=== PATIENT | male | born 1945 | race Caucasian/White ===

== ENCOUNTER 2019-09-26 22:47 | Inpatient (IN) | payer MEDICARE ==
[~2019-09-26] VITALS: Ht 167.6 cm; Wt 63.9 kg
[2019-09-26 23:38] LABS: BASO # 0.1 (0.0-0.2); BASO % 0.8 % (0.0-2.0); EOS # 0.4 (0.0-0.7); EOS % 4.9 % (0-4.0); GRAN # 4.4 (1.4-6.5); GRAN % 50.8 % (42.2-75.2); HEMATOCRIT 37.9 % (42.0-52.0); HEMOGLOBIN 11.5 g/dl (13.5-18.0); LYMPH # 2.8 (1.2-3.4); LYMPH % 31.9 % (20.0-51.0); MEAN CELL VOLUME 86 fl (80.0-100.0); MEAN CORPUSCULAR HEMOGLOBIN 26 pg (27.0-31.0); MEAN CORPUSCULAR HGB CONC 30 g/dl (33.0-37.0); MEAN PLATELET VOLUME 8.8 fl (7.4-10.4); MONO % 11.1 % (1.7-9.3); PLATELET COUNT 271 K/mm3 (130-400); RED BLOOD COUNT 4.39 M/mm3 (4.20-5.60); REDCELL DISTRIBUTION WIDTH-CV 14.8 % (11.5-14.5)
[2019-09-26 23:55] LABS: PROTHROMBIN TIME 11.2 SECONDS (9.7-12.8)
[2019-09-26 23:56] LABS: ALBUMIN 3.5 gm/dL (3.5-5.0); BILIRUBIN,TOTAL 0.2 mg/dL (0.0-1.0); C-REACTIVE PROTEIN 0.8 mg/dL (0.0-0.9); CREATININE, serum 2.05 (0.66-1.25); POTASSIUM 4.9 mmol/L (3.4-5.0); TOTAL PROTEIN 6.6 gm/dL (6.4-8.2)
[2019-09-26 23:58] LABS: PARTIAL THROMBOPLASTIN TIME 32.8 SECONDS (26.0-37.0)
[2019-09-27 01:47] LABS: COLLECTION METHOD CLEAN CATCH
[2019-09-27 02:09] LABS: PH 5 (5-8); SQUAMOUS EPITHELIAL None Seen /hpf; URINE APPEARANCE Turbid; URINE BACTERIA Rare /hpf; URINE BILIRUBIN Negative (NEGATIVE); URINE BLOOD 1+ (NEGATIVE); URINE COLOR Yellow; URINE GLUCOSE Negative (NEGATIVE); URINE KETONE Negative (NEGATIVE); URINE LEUKOCYTE ESTERASE 3+ (NEGATIVE); URINE NITRATE Negative (NEGATIVE); URINE PROTEIN(semi-quant) 2+ (NEGATIVE); URINE RBC 20-50 /hpf; URINE UROBILINOGEN Negative (NEGATIVE)
[2019-09-27] MEDS ORDERED: ASPIRIN 81M81 MG/TA2 PO (03:15)
[2019-09-27] MEDS ORDERED: ZYRTEC 10MG10 MG PO (03:16)
[2019-09-27] MEDS ORDERED: LOPRESSOR 225 MG/TAB PO (03:17)
[2019-09-27] MEDS ORDERED: FLOMAX 0.40.4 MG/CAP PO (03:17)
[2019-09-27 05:10] VITALS: BP 144/81; PULSE 80; TEMP 97.6
--- NOTE | 2019-09-27 05:26 | NUR ---
Pt arrived to unit from ED with dx of GI bleed an UTI. Pt is alert and oriented with vss. Pt heart and lung sounds normal. Bowel sounds aud all quad. Voiding independently. Pedal pulses pressent. IV to L AC, fluids running. Pt states he has been having bright red blood in stools but flushed so nurse did not see. instructed to save stool. pt denies pain or needs. call light within reach, will continue to monitor
[2019-09-27 07:06] LABS: BASO % 0.4 % (0.0-2.0); EOS # 0.4 (0.0-0.7); EOS % 4.5 % (0-4.0); GRAN # 5.1 (1.4-6.5); GRAN % 55.9 % (42.2-75.2); HEMOGLOBIN 10.5 g/dl (13.5-18.0); LYMPH # 2.6 (1.2-3.4); LYMPH % 28.5 % (20.0-51.0); MEAN CELL VOLUME 87 fl (80.0-100.0); MEAN CORPUSCULAR HEMOGLOBIN 26 pg (27.0-31.0); MEAN CORPUSCULAR HGB CONC 30 g/dl (33.0-37.0); MONO # 0.9 (0.1-0.6); PLATELET COUNT 268 K/mm3 (130-400); RED BLOOD COUNT 4.04 M/mm3 (4.20-5.60); REDCELL DISTRIBUTION WIDTH-CV 14.7 % (11.5-14.5)
[2019-09-27 07:10] LABS: HEMATOCRIT 35.1 % (42.0-52.0)
[2019-09-27 07:32] LABS: CALCIUM 8.7 mg/dL (8.4-10.2); CREATININE, serum 1.94 (0.66-1.25); MAGNESIUM 1.6 mg/dL (1.6-2.3); PHOSPHOROUS 3.9 mg/dL (2.5-4.5); POTASSIUM 4.7 mmol/L (3.4-5.0)
[2019-09-27 07:42] VITALS: BP 118/76; PULSE 85; TEMP 97.5
--- NOTE | 2019-09-27 08:00 | NUR ---
Patient is awake and alert in bed, diet has been changed to clear liquids. Was provivded with applejuice and sprite per his request. Denies pain. Call light and personal belongings are within reach.
--- NOTE | 2019-09-27 09:41 | NUR ---
First visit from the sorter laundry articles. No needs right now.
[2019-09-27 12:25] VITALS: BP 111/71; PULSE 80; TEMP 97.5
[2019-09-27 15:57] VITALS: BP 114/69; PULSE 81; TEMP 97.6
[2019-09-27 18:23] LABS: HEMATOCRIT 31.8 % (42.0-52.0); HEMOGLOBIN 9.7 g/dl (13.5-18.0)
--- NOTE | 2019-09-27 19:10 | NUR ---
Received reprot from Latanya. Seen patient awake, lying on bed. He just finished eating his dinner. Denies any pain. With In on left AC running NS at 75ml/hr. Patient is alert and oriented.
[2019-09-27 20:02] VITALS: BP 124/71; PULSE 82; TEMP 98.4
[2019-09-27 23:54] VITALS: BP 115/75; PULSE 73; TEMP 98
[2019-09-28 03:45] VITALS: BP 111/69; PULSE 76; TEMP 98.5
--- NOTE | 2019-09-28 05:45 | NUR ---
Patient had an uneventful night. Denies any pain. 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 Afebrile. Will endorse to day shift nurse.
[2019-09-28 07:09] LABS: BASO % 0.3 % (0.0-2.0); EOS # 0.4 (0.0-0.7); EOS % 4.7 % (0-4.0); GRAN % 55.4 % (42.2-75.2); LYMPH # 2.6 (1.2-3.4); LYMPH % 28.8 % (20.0-51.0); MEAN CELL VOLUME 87 fl (80.0-100.0); MEAN CORPUSCULAR HGB CONC 30 g/dl (33.0-37.0); MEAN PLATELET VOLUME 9.1 fl (7.4-10.4); MONO % 10.5 % (1.7-9.3); PLATELET COUNT 258 K/mm3 (130-400); RED BLOOD COUNT 3.55 M/mm3 (4.20-5.60); REDCELL DISTRIBUTION WIDTH-CV 14.6 % (11.5-14.5)
[2019-09-28 07:14] LABS: HEMOGLOBIN 9.4 g/dl (13.5-18.0); MEAN CORPUSCULAR HEMOGLOBIN 26 pg (27.0-31.0)
[2019-09-28 07:25] LABS: CALCIUM 8.3 mg/dL (8.4-10.2); CREATININE, serum 1.83 (0.66-1.25); POTASSIUM 4.8 mmol/L (3.4-5.0)
[2019-09-28 07:34] VITALS: BP 126/77; PULSE 75; TEMP 97.8
--- NOTE | 2019-09-28 08:45 | NUR ---
Patient is awake and alert in his room. Did disconnect from iv fluids so patient can shower. He is observed to have a steady gait. Denies having pain. Fresh water has been provided. Call light and personal items are within reach.
[2019-09-28 11:51] VITALS: BP 141/70; PULSE 69; TEMP 98.8
--- NOTE | 2019-09-28 14:43 | NUR ---
Textile Supervisor contacted patient to discuss discharge planning. Patient lives alone in [place]. Patient sees Dr. Francisco for primary care at [facility] in [place]. Patient obtains medications from [facility] with no difficulties. Patient does not use any DME and reports independence with ADLS. Patient does not have DPOA-HC but reports his daughter Vicky (ph#[phone]) is his next of kin. Patient plans to return home upon discharge. RUBEN spoke with RNLatanya who reports patient has been independent in his room. SW to continue to follow as needed.
[2019-09-28 16:28] VITALS: BP 115/64; PULSE 68; TEMP 98.6
--- NOTE | 2019-09-28 19:04 | NUR ---
Report given to oncoming shift. Is awake and alert, no needs are identified, call light and personal items are within reach.
[2019-09-28 19:49] VITALS: BP 118/60; PULSE 74; TEMP 98.4
--- NOTE | 2019-09-28 20:00 | NUR ---
At time of assessment, patient is awake in bed watching TV. Respirations are effortless, lung sounds are clear, heart sounds are normal and regular. He does not complain of any pain. He is alert and oriented and states he is looking forward to hopefully going home tomorrow. IV in L AC flushes well and dressing is CDI. No other concerns at this time.
[2019-09-29 00:54] VITALS: BP 115/68; PULSE 72; TEMP 98.2
[2019-09-29 04:58] VITALS: BP 134/76; PULSE 70; TEMP 97.9
--- NOTE | 2019-09-29 05:28 | NUR ---
Patient has had an uneventful night. He has slept throughout the night and has not complained of any pain or other concerns. Will continue to monitor.
[2019-09-29 06:28] LABS: BASO % 0.5 % (0.0-2.0); EOS # 0.4 (0.0-0.7); EOS % 4.2 % (0-4.0); GRAN # 4.4 (1.4-6.5); GRAN % 51.8 % (42.2-75.2); LYMPH # 2.7 (1.2-3.4); LYMPH % 31.5 % (20.0-51.0); MEAN CELL VOLUME 86 fl (80.0-100.0); MEAN CORPUSCULAR HGB CONC 31 g/dl (33.0-37.0); MEAN PLATELET VOLUME 9.3 fl (7.4-10.4); MONO % 11.8 % (1.7-9.3); PLATELET COUNT 254 K/mm3 (130-400); RED BLOOD COUNT 3.56 M/mm3 (4.20-5.60); REDCELL DISTRIBUTION WIDTH-CV 14.6 % (11.5-14.5)
[2019-09-29 06:31] LABS: HEMATOCRIT 30.5 % (42.0-52.0); HEMOGLOBIN 9.4 g/dl (13.5-18.0); MEAN CORPUSCULAR HEMOGLOBIN 26 pg (27.0-31.0)
[2019-09-29 06:52] LABS: CALCIUM 8.7 mg/dL (8.4-10.2); CREATININE, serum 1.9 (0.66-1.25); POTASSIUM 4.4 mmol/L (3.4-5.0)
[2019-09-29 07:14] VITALS: BP 134/74; PULSE 76; TEMP 97.9
--- NOTE | 2019-09-29 08:00 | NUR ---
Patient resting in bed at this time, rouses easily and is alert and oriented while awake. Patient tolerated breakfast well and currently denies pain or further needs. Call light within reach.
[2019-09-29] MEDS ORDERED: OMNICEF 300MG300 MG PO (09:00)
--- NOTE | 2019-09-29 10:45 | NUR ---
Discharge teaching completed. Discussed follow up appointments, discharge medication, d/c medication, and discharge summary for primary care provider. Patient verbalized understanding and denied further questions or concerns. INT removed, catheter intact, hemostasis achieved. Patient escorted to visitor entrance where he entered a private vehicle.
== END 2019-09-29 10:45 | disposition home or self-care (01) | DRG 378 ==
LOC: COL.ER 22:47 → MEDICAL 09-27 03:00
PROVIDERS: Emergency Medicine; Family Medicine; Nurse Practitioner Family; Physician Assistant; ADMIT Student in an Organized Health Care Education/Training Program
DX: K57.31 Diverticulosis of large intestine without perforation or abscess with bleeding (principal); N17.9 Acute kidney failure, unspecified; N13.6 Pyonephrosis; I12.9 Hypertensive chronic kidney disease with stage 1 through stage 4 chronic kidney disease, or unspecified chronic kidney disease; I25.10 Atherosclerotic heart disease of native coronary artery without angina pectoris; Z95.1 Presence of aortocoronary bypass graft; N18.9 Chronic kidney disease, unspecified; D64.9 Anemia, unspecified; J45.909 Unspecified asthma, uncomplicated; N40.0 Benign prostatic hyperplasia without lower urinary tract symptoms; Z98.890 Other specified postprocedural states
CPT/HCPCS: 99222-AI; 99232-AI; 99239; A4216; J0696; J2405; J7030; J7120